=== PATIENT | female | born 1960 | race Caucasian/White ===

== ENCOUNTER 2024-10-08 08:20 | Emergency (ER) | payer SELFPAY ==
[2024-10-08 08:23] VITALS: BP 204/100; PULSE 100; RESP 17; TEMP 36.4; O2SAT 95; BMI 35.9
--- NOTE | 2024-10-08 08:33 | CTR_ITS ---
PROCEDURE INFORMATION: Exam: CT Abdomen And Pelvis With Contrast Exam date and time: 10/08/2024 9:10 AM Age: 64 years old Clinical indication: Abdominal pain; Localized; Left; Prior surgery; Surgery date: 6+ months; Surgery type: Tubal; Additional info: Llq pain, eval stone vs diverticulitis, previous tubal ligat TECHNIQUE: Imaging protocol: Computed tomography of the abdomen and pelvis with contrast. Radiation optimization: All CT scans at this facility use at least one of these dose optimization techniques: automated exposure control; mA and/or kV adjustment per patient size (includes targeted exams where dose is matched to clinical indication); or iterative reconstruction. Contrast material: OMNIPQUE 350; Contrast volume: 100 ml; Contrast route: INTRAVENOUS (IV); COMPARISON: No relevant prior studies available. RADIATION DOSE METRICS: Total DLP (mGy-cm): 831.53 FINDINGS: Lungs: Left lower lobe 4 mm nodule. Liver: Normal. No mass. Gallbladder and biliary ducts: Normal. No calcified stones. No ductal dilation. Pancreas: Normal. No ductal dilation. Spleen: Normal. No splenomegaly. Adrenal glands: Normal. No mass. Kidneys and ureters: Normal. No hydronephrosis. Stomach and bowel: Pericolonic inflammatory changes are seen in the left lower quadrant with a fatty center measuring 4.9 x 2.3 cm. Diffuse diverticulosis is seen. No small bowel loop dilatation. Appendix: Appendix is normal. Intraperitoneal space: Unremarkable. No free air. No significant fluid collection. Vasculature: Mild calcified atherosclerotic changes are seen throughout the abdominal aorta. Lymph nodes: Unremarkable. No enlarged lymph nodes. Urinary bladder: Unremarkable as visualized. Reproductive: Right adnexal hypodense lesion 2.9 x 2.8 cm. Left adnexal hypodense lesion 2.8 x 1.6 cm. Bones/joints: Unremarkable. No acute fracture. Soft tissues: Left thigh anterior subcutaneous enlarged varicose veins. CT/CT abdomen pelvis w con* [id number] IMPRESSION: 1. Pericolonic inflammatory changes are seen in the left lower quadrant with a fatty center measuring 4.9 x 2.3 cm. Findings suggest epiploic appendagitis. 2. Right adnexal hypodense lesion 2.9 x 2.8 cm. Left adnexal hypodense lesion 2.8 x 1.6 cm. Finding could represent ovarian cysts. Pelvic ultrasound can be obtained for further evaluation. 3. Left thigh anterior subcutaneous enlarged varicose veins. Reflux disease can not be excluded. Clinical correlation is advised. 4. Mild calcified atherosclerotic changes are seen throughout the abdominal aorta. 5. Diffuse diverticulosis is seen. 6. Left lower lobe 4 mm nodule. For patients at low risk (minimal or absent history of smoking and of other known risk factors), no routine follow-up is indicated. For patients at high risk (history of smoking or of other known risk factors), consider optional CT Chest at 12 months. (Reference: Kobe) REFERENCES: Kobe Kang, et al. Guidelines for Management of Incidental Pulmonary Nodules Detected on CT Images: From the Fleischner Society 2017. Radiology. 2017;284(1):228-243.
[2024-10-08 08:40] VITALS: BP 204/100; O2SAT 95
[2024-10-08 08:58] LABS: Hematocrit 48.1 % (36-47); Hemoglobin 15.90 g/dL (11.27-16.99); Mean Corpuscular HGB Conc 33.1 g/dL (30-55); Mean Corpuscular Hemoglobin 28.2 pg (27-33); Mean Corpuscular Volume 85.3 fl (85-98); Nucleated Red Blood Cells % 0 %; Platelet Count 282 10^3/cmm (157-399); Red Blood Count 5.64 10^6/uL (3.85-5.65); White Blood Count 13.08 10^3/uL (3.29-11.43)
--- NOTE | 2024-10-08 09:02 | ED_ITS ---
HPI - Abdominal Pain 2 General: Chief Complaint: Abdominal Pain Stated Complaint: Lower L side ABD Pain Time Seen by Provider: 10/08/24 08:21 History of Present Illness: HPI: Patient with history of tubal ligation remotely presenting for onset of left lower quadrant abdominal pain. She describes the pain as severe aching. Relieved with minimal movement, worsened with any movement. Does not radiate from her flank, back, genitals. No UTI symptoms. No fevers, sweats, chills. No diarrhea, constipation, nausea vomiting, recent antibiotics, international travel, or unclean drinking water. REVIEW OF SYSTEMS: 10 systems reviewed and otherwise unrema rkable except for those noted in HPI. PHYSCIAL EXAM: Triage vital signs reviewed Gen: A&O NAD HEENT: NCAT, EOMI, not icteric. External ears normal. No rhinorrhea. Moist mucous membranes. Neck: Supple, full range of motion, no observable masses, No meningeal sign. Lungs: No Respiratory distress. CV: RRR, no edema. Abdomen: Soft, nondistended, No rebound tenderness. Left lower quadrant tenderness to palpation. No CVA tenderness. MSK: No joint swelling, no redness. Skin: No rashes, petechiae, lesions. Normal color per patient. Neuro: Normal Gait, Grossly intact. Psych: Appropriate for situation. PROCEDURES: N/A Related Data Allergies Allergy/AdvReac Type Severity Reaction Status Date / Time No Known Allergies Allergy Verified 10/08/24 08:39 Course 2 Vital Signs: Vital signs: Vital Signs Temperature 97.5 F L 10/08/24 08:23 Pulse Rate 100 10/08/24 08:23 Respiratory Rate 17 10/08/24 08:23 Blood Pressure 162/92 10/08/24 09:05 Pulse Oximetry 94 10/08/24 09:05 Oxygen Delivery Me thod Room Air 10/08/24 08:23 MDM - Abdominal Pain Medical Decision Making MEDICAL DECISION MAKING: Differential diagnoses considered but not limited to: Intra-abdominal surgical infectious emergency, atypical ureterolithiasis, urinary tract infection, pyelonephritis, diverticulitis. Vitals nonactionable. Given history, examination, and pretest risk factors, concern for diverticulitis versus ureterolithiasis. Obtaining screening labs the patient. Patient has leukocytosis. Pending CT abdomen pelvis results. CT suggesting epiploic appendagitis. Considering diverticulitis given elevated white count. Possible stress demargination or inflammatory cause. Patient advised trial of ibuprofen. Told to return in 48 hours symptoms have not improved for repeat abdominal examination and consideration of repeat imaging. DISPO: LAYLA Cifuentes MD Staff physician, [facility] [phone] Lab Data 10/08/24 08:33 10/08/24 08:33 Labs/Radiology: Radiology Impressions Abdomen/Pelvis CT 10/08/24 08:33 IMPRESSION: 1. Pericolonic inflammatory changes are seen in the left lower quadrant with a fatty center measuring 4.9 x 2.3 cm. Findings suggest epiploic appendagitis. 2. Right adnexal hypodense lesion 2.9 x 2.8 cm. Left adnexal hypodense lesion 2.8 x 1.6 cm. Finding could represent ovarian cysts. Pelvic ultrasound can be obtained for further evaluation. 3. Left thigh anterior subcutaneous enlarged varicose veins. Reflux disease can not be excluded. Clinical correlation is advised. 4. Mild calcified atherosclerotic changes are seen throughout the abdominal aorta. 5. Diffuse diverticulosis is seen. 6. Left lower lobe 4 mm nodule. For patients at low risk (minimal or absent history of smoking and of other known risk factors), no routine follow-up is indicated. For patients at high risk (history of smoking or of other known risk factors), consider optional CT Chest at 12 months. (Reference: Kobe) REFERENCES: Kobe Kang, et al. Guidelines for Management of Incidental Pulmonary Nodules Detected on CT Images: From the Fleischner Society 2017. Radiology. 2017;284(1):228-243. Laboratory Results WBC 13.08 10^3/uL (3.29-11.43) H 10/08/24 08:33 RBC 5.64 10^6/uL (3.85-5.65) 10/08/24 08:33 Hgb 15.90 g/dL (11.27-16.99) 10/08/24 08:33 Hct 48.1 % (36-47) H 10/08/24 08:33 MCV 85.3 fl (85-98) 10/08/24 08:33 MCH 28.2 pg (27-33) 10/08/24 08:33 MCHC 33.1 g/dL (30-55) 10/08/24 08:33 RDW 13.2 % (12.1-15.1) 10/08/24 08:33 Plt Count 282 10^3/cmm (157-399) 10/08/24 08:33 MPV 9.4 fL (7.4-10.4) 10/08/24 08:33 Neut % (Auto) 58.8 % 10/08/24 08:33 Lymph % (Auto) 29.1 % 10/08/24 08:33 [place] % (Auto) 8.6 % 10/08/24 08:33 Eos % (Auto) 2.6 % 10/08/24 08:33 Baso % (Auto) 0.5 % 10/08/24 08:33 Neut # (Auto) 7.70 10^3/uL (1.8-7.7) 10/08/24 08:33 Lymph # (Auto) 3.8 10^3/uL (0.8-4.8) 10/08/24 08:33 [place] # (Auto) 1.1 10^3/uL (0.2-0.9) H 10/08/24 08:33 Eos # (Auto) 0.3 10^3/uL (0.0-0.8) 10/08/24 08:33 Baso # (Auto) 0.1 10^3/uL (0.0-0.1) 10/08/24 08:33 Nucleated RBC % (auto) 0 % 10/08/24 08:33 Nucleated RBCs # 0.0 /100WBC 10/08/24 08:33 Sodium 141 mmol/L (136-145) 10/08/24 08:33 Potassium 4.3 mmol/L (3.5-5.1) 10/08/24 08:33 Chloride 106 mmol/L (98-107) 10/08/24 08:33 Carbon Dioxide 22 mmol/L (22-29) 10/08/24 08:33 Anion Gap 17.3 (5-19) 10/08/24 08:33 BUN 13 mg/dL (8-23) 10/08/24 08:33 Creatinine 0.8 mg/dL (0.5-0.9) 10/08/24 08:33 GFR Calculation 72.7 mL/min (90-130) L 10/08/24 08:33 Glucose 105 mg/dL (65-115) 10/08/24 08:33 Calculated Osmolality 292 mOsm/kg (285-295) 10/08/24 08:33 Calcium 9.6 mg/dL (8.5-10.5) 10/08/24 08:33 Total Bilirubin 1.2 mg/dL (0.15-1.2) 10/08/24 08:33 AST 15 U/L (0-32) 10/08/24 08:33 ALT 18 U/L (0-33) 10/08/24 08:33 Alkaline Phosphatase 104 U/L (35-105) 10/08/24 08:33 Total Protein 7.6 g/dL (6.6-8.7) 10/08/24 08:33 Albumin 4.1 g/dL (3.5-5.2) 10/08/24 08:33 Globulin 3.5 g/dL (1.3-4.6) 10/08/24 08:33 Lipase 69 U/L (13-60) H 10/08/24 08:33 Urine Color Yellow (Yellow) 10/08/24 08:33 Urine Appearance Clear (CLEAR) 10/08/24 08:33 Urine pH 5.0 (5-7) 10/08/24 08:33 Ur Specific [place] 1.019 (1.005-1.030) 10/08/24 08:33 Urine Protein Negative (Negative) 10/08/24 08:33 Urine Glucose (UA) Negative (Normal) 10/08/24 08:33 Urine Ketones Negative (Negative) 10/08/24 08:33 Urine Blood Negative (Negative) 10/08/24 08:33 Urine Nitrate Negative (Negative) 10/08/24 08:33 Urine Bilirubin Negative (Negative) 10/08/24 08:33 Urine Urobilinogen 1.0 mg/dL (Negative) 10/08/24 08:33 Ur Leukocyte Esterase Trace (Negative) A 10/08/24 08:33 Urine RBC 3-5 /hpf (0-2) 10/08/24 08:33 Urine WBC 0-5 /hpf (0-5) 10/08/24 08:33 Ur Squamous Epith Cells 0-5 /hpf (0-5) 10/08/24 08:33 Amorphous Sediment Not Reportable 10/08/24 08:33 Urine Bacteria Trace /hpf (NONE) 10/08/24 08:33 Hyaline Casts 1.65 /lpf 10/08/24 08:33 All radiology interpretation(s) finalized by discharge Discharge Plan Discharge Patient Disposition: Home Clinical Impression: Epiploic appendagitis Condition: Stable Discharge Orders: Discharge ED (Routine); Ordered 10/08/24 Ordered By: Sherwin Cifuentes Discharge Diet: Usual diet Discharge Activity: Resume usual activity Patient Instructions: Opioid Safety, Pain Management, Patient Portal & Anh Instructions Activity Restrictions/Additional Instructions: It has been a pleasure caring for you in the emergency department. Please ensure that you follow-up with your primary care physician for review of all data obtained during this encounter including any incidental findings and laboratory values. Keep in mind that if your condition worsens in any way, I strongly recommend that you return to the emergency department for repeat evaluation immediately. Return in 48 hours for repeat abdominal exam if your symptoms have not improved. Take 600 mg of ibuprofen every 8 hours for 4 to 6 days or until pain improves. NATURAL HISTORY AND DISEASE COURSE Epiploic appendagitis is a benign and self-limiting condition. Complete resolution without surgical intervention usually occurs between 3 to 14 days [6 ,28,33,39 [email or web address] ]. The risk of recurrence has not been described but is probably very low. Rarely, inflamed appendages can adhere to the abdominal wall or other viscera predisposing to intestinal obstruction and intussusception [40 [email or web address] ]. Inflamed and necrotic appendages can also rarely progress to abscess formation. Print Language: Slovak Coding Level of Care Code ED Sales Enablement Consultant for [facility]
[2024-10-08 09:05] VITALS: BP 162/92; O2SAT 94
[2024-10-08 09:11] LABS: Glucose Urine UA Negative (Normal); Nitrate Urine Negative (Negative); Specific Gravity, Urine 1.019 (1.005-1.030)
[2024-10-08] MEDS: iohexol 350 mg/mL 500 mL Btl (per mL) IV (09:12)
[2024-10-08 09:15] LABS: Alanine Aminotransferase 18 U/L (0-33); Albumin Level 4.1 g/dL (3.5-5.2); Alkaline Phosphatase 104 U/L (35-105); Anion Gap 17.3 (5-19); Aspartate Amino Transferase 15 U/L (0-32); Blood Urea Nitrogen 13 mg/dL (8-23); Calcium 9.6 mg/dL (8.5-10.5); Carbon Dioxide 22 mmol/L (22-29); Chloride 106 mmol/L (98-107); Creatinine Clr Calc Pharmacy 69.8503; Globulin 3.5 g/dL (1.3-4.6); Glucose 105 mg/dL (65-115); Lipase 69 U/L (13-60); Osmolality Calculated 292 mOsm/kg (285-295); Potassium 4.3 mmol/L (3.5-5.1); Sodium 141 mmol/L (136-145); Total Protein 7.6 g/dL (6.6-8.7)
[2024-10-08 09:16] LABS: Add Urine Microscopic? YES
[2024-10-08 09:47] VITALS: BP 134/65; PULSE 75; O2SAT 98
== END 2024-10-08 09:49 | disposition home or self-care (01) ==
PROVIDERS: Emergency Provider General Practice
DX: K63.89 Other specified diseases of intestine (principal)
CPT/HCPCS: 36415; 74177; 80053; 81001; 83690; 85025; 96374; 99284; J1885